=== PATIENT | female | born 1965 | race Caucasian/White ===

== ENCOUNTER 2016-09-28 08:15 | Outpatient (CLI) | payer OTHER ==
--- NOTE | 2016-09-28 10:24 | DIAGNOSTIC IMAGING REPORT ---
PROCEDURE: MR LOWER EXT JOINT WO CONT-LT INDICATION: LEFT KNEE PAIN TECHNIQUE: PD and FAT-SAT PD sagittal and coronal images. FAT-SAT PD axial images. High-resolution T2 sagittal images of the cruciate ligaments. (Total of 6 sequences). COMPARISON: None. FINDINGS: Cruciate and collateral ligaments are normal. Medial meniscus linear signal which appears to extend to the articular surface consistent with a tear or possibly grade 2 degeneration. Normal lateral meniscus. Quadriceps tendon normal as visualized. Normal patellar tendon. Mild chondromalacia patella. Small popliteal cyst measures 5 cm in length. There is no joint effusion. Multiseptated cyst posterior and medial to the knee joint measures 4 x 0.6 cm. IMPRESSION: 1. Linear signal of the medial meniscus posterior horn extending to the tibial articular surface suggestive of a tear versus grade 2 degeneration 2. Mild chondromalacia patella 3. Multiseptated cyst posterior and medial to the knee joint 4. Thin popliteal cyst.
== END 2016-09-28 23:00 ==
LOC: MRI SRH 08:15
DX: M22.42 Chondromalacia patellae, left knee (principal); M71.22 Synovial cyst of popliteal space [Baker], left knee; M25.862 Other specified joint disorders, left knee

== ENCOUNTER → 2016-10-10 | Outpatient (CLI) | payer OTHER ==
--- NOTE | 2016-10-10 10:55 | DIAGNOSTIC IMAGING REPORT ---
PROCEDURE: XR FOOT 3 VIEWS - RIGHT INDICATION: FOOT PX,RIGHT, crush injury TECHNIQUE: Three views of the right foot. COMPARISON: None. FINDINGS: Normal mineralization. No fractures. Moderate hallux valgus deformity with mild degenerative spurring and subcortical cystic changes of the first metatarsal head. Mild pes planus deformity. No suspicious soft-tissue calcification or radiodense foreign bodies. IMPRESSION: 1. Intact right foot. 2. Moderate hallux valgus and mild pes planus.
== END ==
LOC: XR SRH 10:16
DX: M20.11 Hallux valgus (acquired), right foot (principal); M21.41 Flat foot [pes planus] (acquired), right foot